=== PATIENT | female | born 1980 | race Caucasian/White ===

== ENCOUNTER 2017-12-10 06:25 | Day surgery (SDC) | payer MEDICAID ==
[2017-12-10 07:31] LABS: ADD MAN DIFF? NO
[2017-12-10 07:36] LABS: WHITE BLOOD COUNT 4.8 10^3/ul (4.8-10.8)
[2017-12-10 07:36] LABS: ADD UMIC YES; BASOPHILS % 0.4 % (0.0-2.0); EOSINOPHILS # 0.1 10^3/ul (0.0-0.5); EOSINOPHILS % 1.7 % (0.0-7.0); HEMATOCRIT 31.2 % (37.0-47.0); HEMOGLOBIN 10.4 g/dl (12.0-16.0); LYMPHOCYTES # 1.6 10^3/ul (0.8-2.9); LYMPHOCYTES % 32.9 % (15.0-51.0); MEAN CORPUSCULAR HEMOGLOBIN 29.9 pg (29.0-33.0); MEAN CORPUSCULAR HGB CONC 33.3 g/dl (32.0-37.0); MEAN CORPUSCULAR VOLUME 89.7 fl (82.0-101.0); MEAN PLATELET VOLUME 12.4 fl (7.4-10.4); MONOCYTE # 0.4 10^3/ul (0.3-0.9); MONOCYTES % 7.8 % (0.0-11.0); NEUTROPHIL # 2.7 10^3/ul (1.6-7.5); NEUTROPHILS % 56.8 % (39.0-77.0); PLATELET COUNT 153 10^3/UL (140-415); RED BLOOD COUNT 3.48 10^6/ul (4.20-5.40); RED CELL DISTRIBUTION WIDTH 13.1 % (11.5-14.5); UR ASCORBIC ACID NEGATIVE (NEGATIVE); UR BILIRUBIN (Dip) NEGATIVE (NEGATIVE); UR BLOOD (Dip) 3+ mg/dL (NEGATIVE); UR CLARITY CLEAR (CLEAR); UR COLOR STRAW (YELLOW); UR GLUCOSE (Dip) NEGATIVE (NEGATIVE); UR KETONES (Dip) NEGATIVE (NEGATIVE); UR LEUKOCYTE ESTERASE (Dip) NEGATIVE Leu/ul (NEGATIVE); UR NITRITE (Dip) NEGATIVE (NEGATIVE); UR RBC 5 /HPF (0-5); UR SPECIFIC GRAVITY (Dip) 1.008 (1.003-1.030); UR SQUAMOUS EPITHELIAL CELL FEW /HPF (FEW); UR TOTAL PROTEIN (Dip) NEGATIVE (NEGATIVE); UR UROBILINOGEN (Dip) NEGATIVE (NEGATIVE); UR WBC 0 /HPF (0-5)
[2017-12-10] MEDS ORDERED: MIDAZOLAM 1 MG/ML 2 ML INJ (08:18)
[2017-12-10] MEDS ORDERED: FENTAnyl 50 MCG/ML VIAL (08:18)
[2017-12-10] MEDS ORDERED: IBUPROFEN 600 MG TAB PO ×2 (08:30→09:00)
[2017-12-10] MEDS ORDERED: OXYTOCIN 10 UNIT INJ ×2 (08:37→08:45)
[2017-12-10] MEDS ORDERED: KETOROLAC 30 MG INJ IV (09:00)
[2017-12-10] MEDS ORDERED: PROPOFOL 20 ML (09:06)
[2017-12-10] MEDS ORDERED: LIDOCAINE 2% (SDV) 5 ML INJ (09:06)
[2017-12-10] MEDS ORDERED: ONDANSETRON 4 MG INJ (09:07)
[2017-12-10] MEDS ORDERED: CEFAZOLIN 1 GM INJ (09:07)
[2017-12-10] MEDS ORDERED: DIPHENHYDRAMINE 50 MG INJ IV (09:30)
[2017-12-10] MEDS ORDERED: METOCLOPRAMIDE 10 MG INJ IV (09:30)
[2017-12-10] MEDS ORDERED: HYDROmorphONE (0.2 MG/ML) 10ML SYG IV ×2 (09:30)
[2017-12-10] MEDS ORDERED: MEPERIDINE 25 MG INJ IV (09:30)
[2017-12-10] MEDS ORDERED: ONDANSETRON 4 MG INJ IV (09:30)
[2017-12-10] MEDS: KETOROLAC 30 MG INJ IV (09:36)
[2017-12-10] MEDS: FENTAnyl 50 MCG/ML VIAL IV (09:39)
== END 2017-12-10 11:30 | disposition home or self-care (01) ==
LOC: SDS 06:25
DX: O03.4 Incomplete spontaneous abortion without complication (principal)
CPT/HCPCS: 59812; 81001; 85025; 86850; 86900; 86901; 88305